=== PATIENT | male | born 1995 | race Caucasian/White ===

== ENCOUNTER 2020-10-15 14:55 | Emergency (ER) | payer SELFPAY ==
[~2020-10-15] VITALS: Ht 175.3 cm; Wt 86.4 kg
[2020-10-15 14:57] VITALS: BP 128/75
[2020-10-15] MEDS ORDERED: NAPR-885 PO (15:15)
[2020-10-15] MEDS ORDERED: OXYC1TAB23 PO (15:15)
[2020-10-16] MEDS ORDERED: OXYC1TAB23 PO (07:49)
[2020-10-16] MEDS ORDERED: NAPR-837 PO (07:49)
== END 2020-10-15 17:10 | disposition left against medical advice (07) ==
LOC: M ED 14:55
DX: Z53.21 Procedure and treatment not carried out due to patient leaving prior to being seen by health care provider (principal)

== ENCOUNTER 2020-10-16 06:58 | Emergency (ER) | payer OTHER, SELFPAY ==
[~2020-10-16] VITALS: Ht 177.8 cm; Wt 88.6 kg
[~2020-10-16 06:58] MED LIST: NAPR-885 PO; OXYC1TAB23 PO
[2020-10-16] MEDS ORDERED: ACETAMINOPHEN 500 MG TAB PO ONE (07:45)
[2020-10-16] MEDS ORDERED: OXYC1TAB23 PO (07:49)
[2020-10-16] MEDS ORDERED: NAPR-837 PO (07:49)
[2020-10-16 08:12] VITALS: BP 138/82
== END 2020-10-16 08:13 | disposition home or self-care (01) ==
LOC: M ED 06:58
DX: Z76.0 Encounter for issue of repeat prescription (principal); G89.28 Other chronic postprocedural pain; M79.671 Pain in right foot; F41.9 Anxiety disorder, unspecified; F32.9 Major depressive disorder, single episode, unspecified; F43.10 Post-traumatic stress disorder, unspecified; F17.290 Nicotine dependence, other tobacco product, uncomplicated

== ENCOUNTER → 2021-04-18 | Outpatient (REF) ==
[~2021-04-18] MED LIST changes: +NAPR-837 PO
== END ==
LOC: M LAB 09:11
PROVIDERS: ATTEND Nurse Practitioner Adult Health
DX: Z02.1 Encounter for pre-employment examination (principal)

== ENCOUNTER 2021-05-06 17:20 | Emergency (ER) | payer OTHER ==
[~2021-05-06] VITALS: Ht 177.8 cm; Wt 84.2 kg
[2021-05-06] MEDS ORDERED: AMPH1CAP16 (17:50)
[2021-05-06] MEDS ORDERED: TRAZ-252 (17:50)
[2021-05-06] MEDS ORDERED: ESCITALOPRAM (17:50)
[2021-05-06 19:16] LABS: BASO # 0.1 10^3/uL (0.0-0.2); BASO % 0.6 % (0.0-1.0); EOS # 0.5 10^3/uL (0.0-0.5); EOS % 5.6 % (0.0-3.0); HEMATOCRIT 42.3 % (42.0-52.0); HEMOGLOBIN 14.2 g/dl (13.5-17.5); LYMPH # 2.8 10^3/uL (1.5-5.0); LYMPH % 31.2 % (24.0-44.0); MEAN CORPUSCULAR HEMOGLOBIN 29.4 pg (27.0-33.0); MEAN CORPUSCULAR HGB CONC 33.6 g/dl (32.0-36.5); MEAN CORPUSCULAR VOLUME 87.6 fl (80.0-96.0); MONO # 0.8 10^3/uL (0.0-0.8); MONO % 9.1 % (2.0-8.0); NEUTROPHILS # 4.8 10^3/uL (1.5-8.5); NEUTROPHILS % 52.9 % (36.0-66.0); PLATELET COUNT, AUTOMATED 349 10^3/uL (150-450); RED BLOOD COUNT 4.83 10^6/uL (4.30-6.10); WHITE BLOOD COUNT 9.1 10^3/uL (4.0-10.0)
[2021-05-06 19:42] LABS: FREE T4 0.98 NG/DL (0.76-1.46); THYROID STIMULATING HORMONE 0.959 uIU/ML (0.358-3.740)
[2021-05-06] MEDS ORDERED: ISOVUE-370 76% 100ML VIAL As Ordered ONE (21:05)
[2021-05-06 22:11] VITALS: BP 133/74
[2021-05-06] MEDS ORDERED: ACETAMINOPHEN 325 MG TAB PO ONE (22:15)
== END 2021-05-06 22:28 | disposition home or self-care (01) ==
LOC: M ED 17:20
DX: R00.2 Palpitations (principal); F90.9 Attention-deficit hyperactivity disorder, unspecified type; F41.9 Anxiety disorder, unspecified; M54.9 Dorsalgia, unspecified; F17.290 Nicotine dependence, other tobacco product, uncomplicated; Z79.899 Other long term (current) drug therapy
CPT/HCPCS: 71275; 80047; 84439; 84443; 84484; 85025; 85379; 93005; 99284; Q9967

== ENCOUNTER 2021-09-29 10:14 | Emergency (ER) | payer OTHER ==
[~2021-09-29] VITALS: Ht 177.8 cm; Wt 100.9 kg
[~2021-09-29 10:14] MED LIST changes: +AMPH1CAP16; +ESCITALOPRAM; +TRAZ-252
[2021-09-29] MEDS ORDERED: BUSP10TA (10:36)
[2021-09-29] MEDS ORDERED: OMEP-173 (10:36)
[2021-09-29 11:21] LABS: BASO # 0.1 10^3/uL (0.0-0.2); BASO % 0.6 % (0.0-1.0); EOS # 0.6 10^3/uL (0.0-0.5); EOS % 6.1 % (0.0-3.0); HEMATOCRIT 39.5 % (42.0-52.0); HEMOGLOBIN 13.4 g/dl (13.5-17.5); LYMPH # 2.3 10^3/uL (1.5-5.0); LYMPH % 22.3 % (24.0-44.0); MEAN CORPUSCULAR HEMOGLOBIN 29.5 pg (27.0-33.0); MEAN CORPUSCULAR HGB CONC 33.9 g/dl (32.0-36.5); MEAN CORPUSCULAR VOLUME 86.8 fl (80.0-96.0); MONO # 0.9 10^3/uL (0.0-0.8); MONO % 8.5 % (2.0-8.0); NEUTROPHILS # 6.3 10^3/uL (1.5-8.5); NEUTROPHILS % 61.8 % (36.0-66.0); PLATELET COUNT, AUTOMATED 359 10^3/uL (150-450); RED BLOOD COUNT 4.55 10^6/uL (4.30-6.10); WHITE BLOOD COUNT 10.2 10^3/uL (4.0-10.0)
[2021-09-29] MEDS ORDERED: ONDANSETRON 4MG 2ML VIAL IV ONE (11:45)
[2021-09-29] MEDS ORDERED: NS 1,000 ML IV ONE (11:45)
[2021-09-29] MEDS ORDERED: KETOROLAC 30 MG/ML 1ML VIAL IV ONE (11:45)
[2021-09-29 11:58] LABS: ALBUMIN 4.1 GM/DL (3.2-5.2); ALT/SGPT 69 U/L (12-78); BILIRUBIN,DIRECT 0.1 MG/DL (0.0-0.2); BILIRUBIN,TOTAL 0.3 MG/DL (0.2-1.0); BLOOD UREA NITROGEN 12 MG/DL (7-18); CALCIUM LEVEL 9.5 MG/DL (8.5-10.1); CARBON DIOXIDE LEVEL 26 MEQ/L (21-32); CHLORIDE LEVEL 107 MEQ/L (98-107); CREATININE FOR GFR 1.35 MG/DL (0.70-1.30); GLOMERULAR FILTRATION RATE > 60.0 (>60); GLUCOSE, FASTING 97 MG/DL (70-100); LIPASE 477 U/L (73-393); POTASSIUM SERUM 4.4 MEQ/L (3.5-5.1); SODIUM LEVEL 139 MEQ/L (136-145); TOTAL PROTEIN 7.5 GM/DL (6.4-8.2)
[2021-09-29] MEDS ORDERED: ISOVUE-370 76% 100ML VIAL As Ordered ONE (12:09)
[2021-09-29 12:50] LABS: APPEARANCE, URINE CLEAR (CLEAR); BACTERIA, URINE AUTO NEGATIVE (NEGATIVE); BILIRUBIN, URINE AUTO NEGATIVE (NEGATIVE); BLOOD, URINE BLOOD NEGATIVE (NEGATIVE); COLOR, URINE YELLOW (YELLOW); GLUCOSE, URINE (UA) AUTO NEGATIVE (NEGATIVE); KETONE, URINE AUTO NEGATIVE (NEGATIVE); LEUKOCYTE ESTERASE, URINE AUTO NEGATIVE (NEGATIVE); MUCUS, URINE SMALL (NEGATIVE); NITRITE, URINE AUTO NEGATIVE (NEGATIVE); PROTEIN, URINE AUTO NEGATIVE (NEGATIVE); RBC, URINE AUTO 0 /HPF (0-3); SPECIFIC GRAVITY URINE AUTO 1.013 (1.002-1.035); SQUAMOUS EPITHELIAL CELL UR AU 0 /HPF (0-6); UROBILINOGEN, URINE AUTO 0.2 mg/dL (0.0-2.0); WBC, URINE AUTO 1 /HPF (0-3)
[2021-09-29] MEDS ORDERED: SUCR1SS PO (13:17)
[2021-09-29] MEDS ORDERED: ONDA4TAB6 PO (13:17)
[2021-09-29] MEDS ORDERED: MELO10CA2 PO (13:17)
[2021-09-29 13:47] VITALS: BP 130/74
== END 2021-09-29 13:51 | disposition home or self-care (01) ==
LOC: M ED 10:14
DX: K80.50 Calculus of bile duct without cholangitis or cholecystitis without obstruction (principal); Z79.899 Other long term (current) drug therapy
CPT/HCPCS: 74177; 76705; 80048; 80076; 81001; 83690; 85025; 96361; 96374; 96375; 99284; J1885; J2405; Q9967

== ENCOUNTER 2022-05-11 12:00 | Day surgery (SDC) | payer OTHER ==
[~2022-05-11] VITALS: Ht 177.8 cm; Wt 90.6 kg
[~2022-05-11 12:00] MED LIST changes: +BENZ2TAB5; +BUPR15TA; +BUSP10TA; +CETI-24; +CLON-412; +HALO10TA2; +IBUP-1022; +LEXA1TAB; +MELO10CA2 PO; +MELO15TA28; +NS 1,000 ML IV ONE; +OMEP-173; +OMEP40CA5; +ONDA4TAB6 PO; +PREG100C; +PREG75CA2; +SUCR1SS PO; +TIZA10TA; +TRAM50TA2
[2022-05-11] MEDS ORDERED: propofoL 200 MG/20 ML VIAL As Ordered ONE ×2 (13:11→13:15)
[2022-05-11] MEDS ORDERED: LIDOCAINE 2% 100MG/5ML SDV (FOR ANES.) As Ordered ONE (13:15)
[2022-05-11 14:00] VITALS: BP 123/69
== END 2022-05-11 14:10 | disposition home or self-care (01) ==
LOC: M OPP 12:00
PROVIDERS: ATTEND Internal Medicine Gastroenterology
DX: K44.9 Diaphragmatic hernia without obstruction or gangrene (principal); K29.60 Other gastritis without bleeding; F32.9 Major depressive disorder, single episode, unspecified; F41.9 Anxiety disorder, unspecified; F17.290 Nicotine dependence, other tobacco product, uncomplicated; Z79.899 Other long term (current) drug therapy

== ENCOUNTER 2022-05-21 15:39 | Inpatient (IN) | payer OTHER ==
[~2022-05-21] VITALS: Ht 180.3 cm; Wt 93.5 kg
[~2022-05-21 15:39] MED LIST changes: -BUPR15TA; +BUPR15TA PO; -CETI-24; +CETI-24 PO; -IBUP-1022; +IBUP-1022 PO; -LEXA1TAB; +LEXA1TAB PO; -NS 1,000 ML IV ONE; -OMEP40CA5; +OMEP40CA5 PO; -PREG100C; +PREG100C PO; -TRAM50TA2; +TRAM50TA2 PO; -TRAZ-252; +TRAZ-252 PO; +buPROPion **SR TABLET** (ZYBAN) 150MG PO SCH
[2022-05-21 16:56] LABS: HEMATOCRIT 40.7 % (42.0-52.0); MEAN CORPUSCULAR HEMOGLOBIN 29.5 pg (27.0-33.0); MEAN CORPUSCULAR HGB CONC 34.4 g/dl (32.0-36.5); MEAN CORPUSCULAR VOLUME 85.7 fl (80.0-96.0); PLATELET COUNT, AUTOMATED 324 10^3/uL (150-450); RED BLOOD COUNT 4.75 10^6/uL (4.30-6.10); WHITE BLOOD COUNT 11.8 10^3/uL (4.0-10.0)
[2022-05-21 17:19] LABS: ETHYL ALCOHOL (ETHANOL) < 0.003 % (0.000-0.010)
[2022-05-21 17:21] LABS: ACETAMINOPHEN LEVEL < 2.0 UG/ML (10.0-20.0); ALKALINE PHOSPHATASE 110 U/L (46-116); ALT/SGPT 53 U/L (7.0-40); AST/SGOT 39 U/L (<34); BILIRUBIN,DIRECT 0.2 MG/DL (<0.4); BILIRUBIN,TOTAL 0.4 MG/DL (0.3-1.2); BLOOD UREA NITROGEN 8 MG/DL (9-23); CALCIUM LEVEL 9.2 MG/DL (8.5-10.1); CARBON DIOXIDE LEVEL 30 MMOL/L (20-31); CHLORIDE LEVEL 102 MMOL/L (98-107); CREATININE FOR GFR 1.12 MG/DL (0.70-1.30); GLOMERULAR FILTRATION RATE > 60.0 (>60); GLUCOSE, FASTING 70 MG/DL (60-100); POTASSIUM SERUM 4.1 MMOL/L (3.5-5.1); SALICYLATE LEVEL < 3.0 MG/DL (<30); SODIUM LEVEL 137 MMOL/L (136-145); TOTAL PROTEIN 6.9 G/DL (5.7-8.2)
[2022-05-21 17:23] LABS: THYROID STIMULATING HORMONE 0.659 uIU/ML (0.55-4.78)
[2022-05-21 18:47] LABS: AMPHETAMINES LEVEL URINE NEGATIVE (NEGATIVE); BARBITURATES URINE NEGATIVE (NEGATIVE); CANNABINOIDS URINE NEGATIVE (NEGATIVE); COCAINE METABOLITE URINE NEGATIVE (NEGATIVE); METHADONE URINE NEGATIVE (NEGATIVE); OPIATES URINE NEGATIVE (NEGATIVE); PHENCYCLIDINE URINE NEGATIVE (NEGATIVE)
[2022-05-21 18:48] LABS: BENZODIAZEPINES URINE NEGATIVE (NEGATIVE)
[2022-05-21] MEDS ORDERED: HOME MED LIST COMPLETE! XX SCH (19:00)
[2022-05-21] MEDS ORDERED: MOM 30ML SUSPENSION UDC PO PRN (19:25)
[2022-05-21] MEDS ORDERED: CETIRIZINE (ZyrTEC) 10 MG TAB PO PRN (19:25)
[2022-05-21] MEDS ORDERED: IBUPROFEN 600MG TAB PO PRN (19:25)
[2022-05-21] MEDS ORDERED: ACETAMINOPHEN TAB 650MG DOSE (2X325MG) PO PRN (19:25)
[2022-05-21] MEDS ORDERED: MAALOX 30 ML SUSP *UDC PO PRN (19:25)
[2022-05-21] MEDS: traMADol 50 MG TAB PO PRN (19:38)
[2022-05-21] MEDS: traZODone 50 MG TAB PO PRN (23:14)
[2022-05-21 23:20] VITALS: BP 146/83
[2022-05-22 06:37] VITALS: BP 124/65
[2022-05-22] MEDS: ESCITALOPRAM OXALATE 10 MG TAB (LEXAPRO) PO SCH (08:29)
[2022-05-22] MEDS: PREGABALIN 100 MG CAP (LYRICA) PO SCH ×2 (08:29→22:35)
[2022-05-22] MEDS: buPROPion **SR TABLET** (ZYBAN) 150MG PO SCH ×2 (08:29→22:36)
[2022-05-22] MEDS: traMADol 50 MG TAB PO PRN ×2 (08:34→16:18)
[2022-05-22] MEDS: NICOTINE POLACRILEX 2 MG GUM PO PRN ×2 (11:20→16:20)
[2022-05-22] MEDS: ARIPiprazole 10 MG TAB PO SCH (11:44)
[2022-05-22] MEDS: OMEPRAZOLE 20MG CAP PO SCH (11:44)
[2022-05-22] MEDS: LIDOCAINE 5% (LIDODERM) PATCH TD SCH (11:47)
[2022-05-22 12:14] LABS: HEPATITIS B SURFACE ANTIGEN NEGATIVE (NEGATIVE)
[2022-05-22 12:36] LABS: HEPATITIS B CORE ANTIBODY IGM NEGATIVE (NEGATIVE); HEPATITIS C VIRUS ABY INDEX 0.1 INDEX (<0.8)
[2022-05-22] MEDS: MELOXICAM (MOBIC) 7.5 MG TAB PO PRN (16:17)
[2022-05-22 18:51] VITALS: BP 158/93
[2022-05-22] MEDS: traZODone 50 MG TAB PO PRN (22:36)
[2022-05-23 06:43] VITALS: BP 113/55
[2022-05-23] MEDS: LIDOCAINE 5% (LIDODERM) PATCH TD SCH (09:00)
[2022-05-23] MEDS: ARIPiprazole 10 MG TAB PO SCH (09:46)
[2022-05-23] MEDS: PREGABALIN 100 MG CAP (LYRICA) PO SCH ×2 (09:46→20:36)
[2022-05-23] MEDS: buPROPion **SR TABLET** (ZYBAN) 150MG PO SCH ×2 (09:46→20:34)
[2022-05-23] MEDS: ESCITALOPRAM OXALATE 10 MG TAB (LEXAPRO) PO SCH (09:46)
[2022-05-23] MEDS: OMEPRAZOLE 20MG CAP PO SCH (09:47)
[2022-05-23] MEDS: NICOTINE POLACRILEX 2 MG GUM PO PRN ×2 (09:48→18:17)
[2022-05-23] MEDS: traMADol 50 MG TAB PO PRN (15:39)
[2022-05-23 18:32] VITALS: BP 155/75
[2022-05-23] MEDS: traZODone 50 MG TAB PO PRN (20:35)
[2022-05-23] MEDS: MELOXICAM (MOBIC) 7.5 MG TAB PO PRN (20:57)
[2022-05-24 06:58] VITALS: BP 124/64
[2022-05-24] MEDS: LIDOCAINE 5% (LIDODERM) PATCH TD SCH (09:00)
[2022-05-24] MEDS: ARIPiprazole 10 MG TAB PO SCH (09:23)
[2022-05-24] MEDS: buPROPion **SR TABLET** (ZYBAN) 150MG PO SCH ×2 (09:24→21:00)
[2022-05-24] MEDS: OMEPRAZOLE 20MG CAP PO SCH (09:24)
[2022-05-24] MEDS: PREGABALIN 100 MG CAP (LYRICA) PO SCH ×2 (09:24→21:38)
[2022-05-24] MEDS: ESCITALOPRAM OXALATE 10 MG TAB (LEXAPRO) PO SCH (09:24)
[2022-05-24] MEDS: traMADol 50 MG TAB PO PRN ×2 (09:26→15:55)
[2022-05-24] MEDS: NICOTINE POLACRILEX 2 MG GUM PO PRN ×2 (09:29→15:55)
[2022-05-24 18:22] VITALS: BP 145/89
[2022-05-24] MEDS: MELOXICAM (MOBIC) 7.5 MG TAB PO PRN (19:06)
[2022-05-24] MEDS: traZODone 50 MG TAB PO PRN (21:38)
[2022-05-25 06:30] VITALS: BP 123/58
[2022-05-25] MEDS: LIDOCAINE 5% (LIDODERM) PATCH TD SCH (08:37)
[2022-05-25] MEDS: NICOTINE POLACRILEX 2 MG GUM PO PRN (08:40)
[2022-05-25] MEDS: OMEPRAZOLE 20MG CAP PO SCH (08:40)
[2022-05-25] MEDS: buPROPion **SR TABLET** (ZYBAN) 150MG PO SCH (08:41)
[2022-05-25] MEDS: traMADol 50 MG TAB PO PRN (08:41)
[2022-05-25] MEDS: ESCITALOPRAM OXALATE 10 MG TAB (LEXAPRO) PO SCH (08:41)
[2022-05-25] MEDS: ARIPiprazole 10 MG TAB PO SCH (08:41)
[2022-05-25] MEDS: PREGABALIN 100 MG CAP (LYRICA) PO SCH (08:41)
[2022-05-25] MEDS ORDERED: BUPR15TA PO ×2 (09:46→11:11)
[2022-05-25] MEDS ORDERED: ABIL10TA9 PO ×2 (09:46→11:12)
[2022-05-25] MEDS ORDERED: LEXA1TAB PO ×2 (09:46→11:12)
[2022-05-25] MEDS ORDERED: NICO2GUM PO ×2 (09:46→11:12)
[2022-05-25] MEDS ORDERED: HALO1TAB19 PO ×2 (09:46→11:12)
[2022-05-25] MEDS ORDERED: TRAZ-252 PO ×2 (09:46→11:11)
== END 2022-05-25 13:37 | disposition home or self-care (01) | DRG 882 ==
LOC: M ED 15:39 → M ED INP 19:21 → M PSY 20:05
PROVIDERS: ADMIT Psychiatry & Neurology Psychiatry; ATTEND Psychiatry & Neurology Psychiatry
DX: F43.11 Post-traumatic stress disorder, acute (principal); F17.200 Nicotine dependence, unspecified, uncomplicated; F31.9 Bipolar disorder, unspecified; Z79.899 Other long term (current) drug therapy; E86.0 Dehydration; M54.50 Low back pain, unspecified

== ENCOUNTER 2022-06-05 18:34 | Emergency (ER) | payer OTHER ==
[~2022-06-05] VITALS: Ht 157.5 cm; Wt 86.4 kg
[~2022-06-05 18:34] MED LIST changes: +ABIL10TA9 PO; +HALO1TAB19 PO; +NICO2GUM PO; -buPROPion **SR TABLET** (ZYBAN) 150MG PO SCH
[2022-06-05 18:35] VITALS: BP 133/78
[2022-06-05] MEDS ORDERED: KETOROLAC 30 MG/ML 1ML VIAL IM ONE (19:50)
[2022-06-05] MEDS ORDERED: ACETAMINOPHEN TAB 650MG DOSE (2X325MG) PO ONE (19:50)
[2022-06-05] MEDS ORDERED: NORCO, ANEXSIA 5/325MG TABLET (HYDROcodone/ACETAMINOPHEN) PO ONE (21:10)
[2022-06-05] MEDS ORDERED: KETO10TAB PO (21:11)
[2022-06-05] MEDS ORDERED: LIDO5DIS41 TD (21:11)
== END 2022-06-05 21:21 | disposition home or self-care (01) ==
LOC: M ED 18:34
DX: G89.29 Other chronic pain (principal); M54.9 Dorsalgia, unspecified; M51.9 Unspecified thoracic, thoracolumbar and lumbosacral intervertebral disc disorder; Z79.899 Other long term (current) drug therapy
CPT/HCPCS: 96372; 99282; J1885

== ENCOUNTER 2022-06-22 17:50 | Emergency (ER) | payer OTHER ==
[~2022-06-22] VITALS: Ht 177.8 cm; Wt 98.3 kg
[2022-06-22 17:50] VITALS: BP 142/66
[~2022-06-22 17:50] MED LIST changes: +KETO10TAB PO; +LIDO5DIS41 TD
[2022-06-23] MEDS ORDERED: TIZA10TA (08:09)
[2022-06-23] MEDS ORDERED: HYDR-4517 (08:09)
[2022-06-23] MEDS ORDERED: GABA-283 (08:09)
== END 2022-06-22 21:54 | disposition left against medical advice (07) ==
LOC: M ED 17:50
DX: Z53.21 Procedure and treatment not carried out due to patient leaving prior to being seen by health care provider (principal)

== ENCOUNTER 2022-06-23 08:02 | Emergency (ER) | payer OTHER ==
[~2022-06-23] VITALS: Ht 177.8 cm; Wt 96.0 kg
[2022-06-23] MEDS ORDERED: TIZA10TA (08:09)
[2022-06-23] MEDS ORDERED: HYDR-4517 (08:09)
[2022-06-23] MEDS ORDERED: GABA-283 (08:09)
[2022-06-23] MEDS ORDERED: LIDOCAINE 5% (LIDODERM) PATCH TD ONE (08:40)
[2022-06-23] MEDS ORDERED: diazePAM 5MG TABLET PO ONE (08:40)
[2022-06-23] MEDS ORDERED: ANEXSIA, NORCO 7.5MG/325MG TABLET(HYDROCODONE/APAP) PO ONE (09:45)
[2022-06-23 10:45] VITALS: BP 126/57
== END 2022-06-23 10:46 | disposition home or self-care (01) ==
LOC: M ED 08:02
DX: M54.50 Low back pain, unspecified (principal); M51.9 Unspecified thoracic, thoracolumbar and lumbosacral intervertebral disc disorder; F17.200 Nicotine dependence, unspecified, uncomplicated; Z79.899 Other long term (current) drug therapy

== ENCOUNTER 2022-07-27 10:59 | Inpatient (IN) | payer OTHER ==
[~2022-07-27] VITALS: Ht 177.8 cm; Wt 97.0 kg
[~2022-07-27 10:59] MED LIST changes: +BENZ2TAB48; -BENZ2TAB5; +GABA-283; +HYDR-4517
[2022-07-27] MEDS ORDERED: NS 1,000 ML IV ONE (11:50)
[2022-07-27] MEDS ORDERED: KETOROLAC 30 MG/ML 1ML VIAL IV ONE (11:50)
[2022-07-27 12:27] LABS: BASO # 0.1 10^3/uL (0.0-0.2); BASO % 0.6 % (0.0-1.0); EOS # 0.4 10^3/uL (0.0-0.5); EOS % 3.1 % (0.0-3.0); HEMATOCRIT 46.1 % (42.0-52.0); HEMOGLOBIN 15.9 g/dl (13.5-17.5); LYMPH # 2.1 10^3/uL (1.5-5.0); LYMPH % 17.6 % (24.0-44.0); MEAN CORPUSCULAR HEMOGLOBIN 29.8 pg (27.0-33.0); MEAN CORPUSCULAR HGB CONC 34.5 g/dl (32.0-36.5); MEAN CORPUSCULAR VOLUME 86.3 fl (80.0-96.0); MONO # 0.9 10^3/uL (0.0-0.8); MONO % 7.8 % (2.0-8.0); NEUTROPHILS # 8.3 10^3/uL (1.5-8.5); NEUTROPHILS % 70.2 % (36.0-66.0); PLATELET COUNT, AUTOMATED 371 10^3/uL (150-450); RED BLOOD COUNT 5.34 10^6/uL (4.30-6.10); WHITE BLOOD COUNT 11.9 10^3/uL (4.0-10.0)
[2022-07-27] MEDS ORDERED: LORazepam 2 MG/ML 1ML VIAL IV STA (12:30)
[2022-07-27 12:37] LABS: INR 0.94; PROTHROMBIN TIME 12.8 SECONDS (12.5-14.5)
[2022-07-27 12:38] LABS: PARTIAL THROMBOPLASTIN TIME 27.5 SECONDS (24.8-34.2)
[2022-07-27 12:40] LABS: D-DIMER QUANT 470.64 ng/ml (<500)
[2022-07-27 12:57] LABS: BLOOD UREA NITROGEN 24 MG/DL (9-23); CALCIUM LEVEL 9.5 MG/DL (8.5-10.1); CARBON DIOXIDE LEVEL 24 MMOL/L (20-31); CHLORIDE LEVEL 104 MMOL/L (98-107); CK-MB VALUE MASS < 1.0 NG/ML (<3.6); CPK CREATINE PHOSPHOKINASE 424 U/L (46-171); CREATININE FOR GFR 1.23 MG/DL (0.70-1.30); GLOMERULAR FILTRATION RATE > 60.0 (>60); GLUCOSE, FASTING 79 MG/DL (60-100); MB/CK RELATIVE INDEX 0.23 (< OR =4); POTASSIUM SERUM 4.1 MMOL/L (3.5-5.1); SODIUM LEVEL 135 MMOL/L (136-145)
[2022-07-27 12:59] LABS: THYROID STIMULATING HORMONE 0.844 uIU/ML (0.55-4.78)
[2022-07-27 13:00] LABS: FREE T4 1.34 NG/DL (0.89-1.76)
[2022-07-27 13:40] LABS: RSV AMPLIFICATION NEGATIVE (NEGATIVE)
[2022-07-27 16:55] LABS: ETHYL ALCOHOL (ETHANOL) < 0.003 % (0.000-0.010)
[2022-07-27 16:56] LABS: ACETAMINOPHEN LEVEL < 2.0 UG/ML (10.0-20.0); SALICYLATE LEVEL < 3.0 MG/DL (<30)
[2022-07-27 17:15] LABS: BARBITURATES URINE NEGATIVE (NEGATIVE); BENZODIAZEPINES URINE NEGATIVE (NEGATIVE); CANNABINOIDS URINE NEGATIVE (NEGATIVE); METHADONE URINE NEGATIVE (NEGATIVE); OPIATES URINE NEGATIVE (NEGATIVE); PHENCYCLIDINE URINE NEGATIVE (NEGATIVE)
[2022-07-27 17:35] LABS: AMPHETAMINES LEVEL URINE POSITIVE (NEGATIVE); COCAINE METABOLITE URINE POSITIVE (NEGATIVE)
[2022-07-27] MEDS ORDERED: NICOTINE 21MG/24HR 1 EA TRANSDERMAL TD ONE (17:55)
[2022-07-27] MEDS ORDERED: MOM 30ML SUSPENSION UDC PO PRN (19:20)
[2022-07-27] MEDS ORDERED: ACETAMINOPHEN TAB 650MG DOSE (2X325MG) PO PRN (19:20)
[2022-07-27] MEDS ORDERED: MAALOX 30 ML SUSP *UDC PO PRN (19:20)
[2022-07-27] MEDS ORDERED: OLANZapine 5 MG TAB PO PRN (19:20)
[2022-07-27 20:41] VITALS: BP 108/66
[2022-07-27] MEDS ORDERED: GABAPENTIN 300 MG CAP PO SCH (21:00)
[2022-07-27] MEDS ORDERED: tiZANidine 4 MG TAB PO PRN (21:05)
[2022-07-27] MEDS ORDERED: NORCO, ANEXSIA 5/325MG TABLET (HYDROcodone/ACETAMINOPHEN) PO PRN (21:05)
[2022-07-27] MEDS ORDERED: GABA-283 PO (21:46)
[2022-07-27] MEDS ORDERED: LEXA1TAB PO (21:46)
[2022-07-27] MEDS ORDERED: GABA600T4 PO (21:46)
[2022-07-27] MEDS ORDERED: BUPR-71 PO (21:46)
[2022-07-27] MEDS ORDERED: TIZA10TA PO (21:50)
[2022-07-27] MEDS ORDERED: HOME MED LIST COMPLETE! XX SCH (21:50)
[2022-07-27] MEDS ORDERED: OMEP40CA5 PO (21:50)
[2022-07-27] MEDS ORDERED: HYDR-4517 PO (21:50)
[2022-07-27] MEDS ORDERED: TRAZ-186 PO (21:50)
[2022-07-27] MEDS: buPROPion **SR TABLET** (ZYBAN) 150MG PO SCH (22:11)
[2022-07-27] MEDS: OLANZapine 5 MG TAB PO SCH (22:11)
[2022-07-28 06:17] VITALS: BP 96/52
[2022-07-28] MEDS: OLANZapine 5 MG TAB PO SCH (08:58)
[2022-07-28] MEDS: buPROPion **SR TABLET** (ZYBAN) 150MG PO SCH (08:58)
[2022-07-28] MEDS ORDERED: GABAPENTIN 400MG CAP PO SCH (09:00)
[2022-07-28] MEDS ORDERED: NICOTINE 21MG/24HR 1 EA TRANSDERMAL TD SCH (09:00)
[2022-07-28] MEDS ORDERED: ESCITALOPRAM OXALATE 10 MG TAB (LEXAPRO) PO SCH (09:00)
== END 2022-07-28 13:54 | disposition home or self-care (01) | DRG 898 ==
LOC: M ED 10:59 → M ED INP 19:45 → M PSY 20:01
PROVIDERS: ADMIT Student in an Organized Health Care Education/Training Program; ATTEND Student in an Organized Health Care Education/Training Program
DX: F19.159 Other psychoactive substance abuse with psychoactive substance-induced psychotic disorder, unspecified (principal); F25.9 Schizoaffective disorder, unspecified; F32.A Depression, unspecified; Z91.51 Personal history of suicidal behavior; F43.10 Post-traumatic stress disorder, unspecified; F17.200 Nicotine dependence, unspecified, uncomplicated; Z81.8 Family history of other mental and behavioral disorders; Z81.1 Family history of alcohol abuse and dependence; F19.129 Other psychoactive substance abuse with intoxication, unspecified; Z20.822 Contact with and (suspected) exposure to COVID-19; Z79.899 Other long term (current) drug therapy